=== PATIENT | male | born 1970 ===

== ENCOUNTER → 2019-03-08 20:56 | Outpatient (ROUT) | payer SELFPAY ==
[2019-03-11 13:38] LABS: RPR Screen Nonreactive (Nonreactive)
== END ==
PROVIDERS: Visit Provider Family Medicine
DX: Z11.1 Encounter for screening for respiratory tuberculosis (principal); Z11.3 Encounter for screening for infections with a predominantly sexual mode of transmission
CPT/HCPCS: 36415; 86480; 86592; 87591